=== PATIENT | male | born 1980 | race Hispanic/Latino ===

== ENCOUNTER 2019-06-11 13:22 | Emergency (ER) | payer SELFPAY ==
[2019-06-11] MEDS ORDERED: ONDANSETRON HCL 4 MG/2 ML VIAL ONE (13:52)
[2019-06-11] MEDS ORDERED: DICYCLOMINE HCL 10 MG/ML 2ML AMP IM ONE (13:52)
[2019-06-11] MEDS ORDERED: KETOROLAC TROMETHAMINE 15MG/ML ONE (13:52)
[2019-06-11] MEDS ORDERED: FAMOTIDINE/PF 20 MG/2 ML VIAL IV ONE (13:53)
[2019-06-11] MEDS ORDERED: SODIUM CHLORIDE 0.9% 1000ML 1,000 ML IV ONE (13:54)
[2019-06-11 13:57] LABS: BASOPHILS % (AUTO) 0.4 % (0.0-5.0); EOSINOPHILS % (AUTO) 2.4 % (0.0-8.0); HEMATOCRIT 44.8 % (42-54); LYMPHOCYTES % (AUTO) 25.9 % (21.0-51.0); MEAN CORPUSCULAR HEMOGLOBIN 31.1 pg (27.0-33.0); MEAN CORPUSCULAR HGB CONC 33.9 g/dL (32.0-36.0); MEAN CORPUSCULAR VOLUME 91.7 fL (79-99); MONOCYTES % (AUTO) 8.8 % (3.0-13.0); NEUTROPHILS % (AUTO) 62.5 % (40.0-77.0); NUCLEATED RED BLOOD CELLS 0.1 % (0.0-0.19); PLATELET COUNT (AUTO) 260 K/uL (130-400); RED BLOOD CELL COUNT(AUTO) 4.88 MIL/uL (4.50-6.20); RED CELL DISTRIBUTION WIDTH 14.6 % (11.0-15.5); WHITE BLOOD COUNT (AUTO) 8.8 K/uL (4.8-10.8)
[2019-06-11 14:00] LABS: CREATININE 1.1 mg/dL (0.5-1.5); POTASSIUM 3.4 mmol/L (3.5-5.1)
[2019-06-11 14:07] LABS: ALBUMIN 3.5 g/dL (3.5-5.0); BILIRUBIN,TOTAL 0.6 mg/dL (0.2-1.0); TOTAL PROTEIN, SERUM 7.5 g/dL (6.0-8.3)
[2019-06-11] MEDS ORDERED: MAG HYDROX/AL HYDROX/SIMETH ES 30 ML SUSP UDCUP ONE (15:02)
[2019-06-11] MEDS ORDERED: LIDOCAINE HCL 2% VISCOUS 15 ML UDCUP ONE (15:02)
== END 2019-06-11 16:42 | disposition home or self-care (01) ==
LOC: EDH 13:22
DX: K29.70 Gastritis, unspecified, without bleeding (principal); Z72.0 Tobacco use
CPT/HCPCS: 36415; 74176; 80053; 83690; 85025; 96372; 96374; 96375; 99285; J0500; J1885; J2405; J3490; J7030

== ENCOUNTER 2021-03-18 09:06 | Emergency (ER) | payer OTHER ==
[~2021-03-18] VITALS: Ht 175.3 cm; Wt 79.4 kg
[2021-03-18 09:08] VITALS: BP 156/96
[2021-03-18 10:44] VITALS: BP 125/78
[2021-03-18] MEDS ORDERED: KETOROLAC 60 MG VIAL (30MG/ML) IM ONE (11:30)
[2021-03-18] MEDS ORDERED: IBUP-2070 PO (12:49)
[2021-03-18] MEDS ORDERED: PSEU-225 PO (12:49)
[2021-03-18] MEDS ORDERED: AMOX-429 PO (12:49)
[2021-03-18] MEDS ORDERED: FLUT16H NASAL (12:52)
== END 2021-03-18 12:59 | disposition home or self-care (01) ==
LOC: EDH 09:06
DX: J01.90 Acute sinusitis, unspecified (principal); Z20.822 Contact with and (suspected) exposure to COVID-19; J45.909 Unspecified asthma, uncomplicated; Z79.1 Long term (current) use of non-steroidal anti-inflammatories (NSAID)
CPT/HCPCS: 87635; 96372; 99283; C9803; J1885